=== PATIENT | female | born 1955 | race Caucasian/White ===

== ENCOUNTER → 2017-04-19 | Outpatient (CLI) | payer BC, MEDICARE ==
[~2017-04-19] MED LIST: ADVIL200 M1 PO; BACTRIM DS TABL1 TA1 PO; BACTRIM DS TABL1 TAB PO; CELEBREX PO; CLARITIN10 M2 PO; DICYCLOMINE HCL20 MG PO; JANUMET XR 1001 EACH PO; KEFLEX500 M1 PO; MOBIC; OMEPRAZOLE40 M1 PO; OYSTER CALCIUM500 MG PO; PREMARIN; PREVACID; PREVACID15 MG PO; PYRIDIUM PO; SULFAMETHOXAZOLE; TENORMIN25 MG PO; TOPROL XL PO; TRIMETHOPRIM; VICODIN PO; VITAMIN C PO; ZYRTEC PO
--- NOTE | ~2017-04-19 | MY29 ---
[facility] A Service [facility] RADIOLOGY TEXT RESULTS PATIENT: MURALI PEREZ LOCATION: [facility] : 59 UNIT #: [id number] AGE: [address]: Tawny Mcgraw MD SEX: F ORDER DR: [id number] [facility] [address] [place], [place] [address] [id number] O MR#: [id number] Acc #: [id number] NAME: MURALI PEREZ : 1955 SEX: F STUDY DATE/TIME: 04/19/2017 9:41 UNIT: [facility] ROOM: STUDY DESCRIPTION: MY MALICK SCREENING W/ CAD BILAT Attending Physician: Tawny Mcgraw M.D. Ordering Physician: Tawny Mcgraw M.D. Primary Care Physician: Tawny Mcgraw M.D. MEDICAL IMAGING REPORT This report is preliminary unless electronic signature is present EXAM Digital screening mammogram 04/19/2017 HISTORY 62-year-old woman positive family history. Annual screen. COMPARISON Mammograms 02/02/2015, 04/06/2016. FINDINGS Digital imaging of each breast was completed utilizing standard craniocaudal and mediolateral-oblique projections. Review and interpretation of digital mammograms include a second review in conjunction with FDA-approved CAD device. There is an overall increase in the parenchymal presentation bilaterally with a generalized fibronodular pattern in each breast. There are no breast masses and I see no asymmetry in the parenchymal presentation. There are no suspicious microcalcifications and I see no architectural disturbance. IMPRESSION Benign mammogram. One-year followup recommended. Patients over the age of 40 are entered into a reminder system with target due date for the next mammogram. A result letter will also be sent to the patient. BIRADS: 2 Benign finding Dictated by... Michi Smiley M.D. [facility] A Service [facility] RADIOLOGY TEXT RESULTS PATIENT: MURALI PEREZ LOCATION: [facility] : 59 UNIT #: [id number] AGE: [address]: Tawny Mcgraw MD SEX: F ORDER DR: THIS IS AN ELECTRONICALLY VERIFIED REPORT Michi Smiley M.D. at 04/19/2017 12:58 PM HYACINTH/brooke TD: 04/19/2017 12:23 JOB #: [id number] MEDICAL IMAGING REPORT Page 1 of 1 COPY
== END | disposition home or self-care (01) ==
LOC: CWCC 09:18
DX: Z12.31 Encounter for screening mammogram for malignant neoplasm of breast (principal); Z80.3 Family history of malignant neoplasm of breast
CPT/HCPCS: G0202